=== PATIENT | male | born 1985 | race American Indian/Alaskan Native ===

== ENCOUNTER 2019-11-18 01:35 | Emergency (ER) | payer SELFPAY ==
[2019-11-18] MEDS ORDERED: SODIUM CHLORIDE 0.9% 1000 ML 1,000 ML IV ONE (02:08)
--- NOTE | 2019-11-18 02:08 | Emergency Department Report ---
ED Altered Mental Status HPI - General Chief Complaint: Altered Mental Status Stated Complaint: ETOH Time Seen by Provider: 11/18/19 01:57 Source: EMS Mode of arrival: Stretcher Limitations: Altered Mental Status - History of Present Illness Initial Comments: Unknown age male, appears to be in his 20s or 30s, brought into the ED by EMS for altered mental status. EMS reports possible ETOH. Pt was at a green party and reportedly had 1 beer. Accu-Chek 104. Patient arouses to painful stimuli, but remains nonverbal. MD Complaint: altered mental status -: This morning Severity: moderate Context: alcohol abuse - Related Data Allergies Allergy/AdvReac Type Severity Reaction Status Date / Time Unable to Assess Allergy Unverified 11/18/19 01:36 ED Review of Systems ROS: Stated complaint: ETOH Other details as noted in HPI Comment: Unobtainable due to pts medical conditions ED Past Medical Hx - Past Medical History Additional medical history: UTO - Social History Smoking Status: Unknown if ever smoked ED Physical Exam - General Limitations: Altered Mental Status General appearance: obtunded - Head Head exam: Present: atraumatic, normocephalic - Eye Eye exam: Present: normal appearance, PERRL, EOMI - ENT ENT exam: Present: mucous membranes moist - Neck Neck exam: Present: normal inspection - Respiratory Respiratory exam: Present: normal lung sounds bilaterally. Absent: respiratory distress - Cardiovascular Cardiovascular Exam: Present: regular rate, normal rhythm - GI/Abdominal GI/Abdominal exam: Present: soft. Absent: distended, tenderness - Extremities Exam Extremities exam: Present: normal inspection - Neurological Exam Neurological exam: Present: other (Appears intoxicated, responds to painful stimuli, moves all extremities) - Skin Skin exam: Present: warm, dry, intact, normal color ED Course Vital Signs 11/18/19 11/18/19 11/18/19 01:22 01:30 01:37 Temperature 97.8 F Pulse Rate 77 76 Respiratory 10 L 13 Rate Blood Pressure 108/60 108/60 Blood Pressure [Left] O2 Sat by Pulse 94 96 96 Oximetry 11/18/19 11/18/19 11/18/19 01:46 02:00 02:16 Temperature Pulse Rate 78 76 76 Respiratory Rate Blood Pressure 105/60 105/60 100/58 Blood Pressure [Left] O2 Sat by Pulse 95 90 96 Oximetry 11/18/19 11/18/19 11/18/19 02:30 02:46 03:00 Temperature Pulse Rate 72 71 71 Respiratory 12 10 L Rate Blood Pressure 100/58 97/56 97/56 Blood Pressure 97/56 [Left] O2 Sat by Pulse 95 97 95 Oximetry 11/18/19 11/18/19 11/18/19 03:16 03:30 03:46 Temperature Pulse Rate 72 69 71 Respiratory 10 L 10 L Rate Blood Pressure 94/49 94/49 100/49 Blood Pressure [Left] O2 Sat by Pulse 96 96 98 Oximetry 11/18/19 11/18/19 11/18/19 04:00 04:16 04:20 Temperature Pulse Rate 77 73 71 Respiratory 13 10 L 12 Rate Blood Pressure 100/49 106/53 Blood Pressure 106/53 [Left] O2 Sat by Pulse 100 100 Oximetry 11/18/19 11/18/19 11/18/19 04:30 04:46 05:00 Temperature Pulse Rate 73 64 75 Respiratory 13 11 L Rate Blood Pressure 106/53 107/47 100/73 Blood Pressure [Left] O2 Sat by Pulse 98 100 Oximetry 11/18/19 11/18/19 11/18/19 05:16 05:30 05:46 Temperature Pulse Rate 64 71 70 Respiratory Rate Blood Pressure 107/47 97/65 97/65 Blood Pressure [Left] O2 Sat by Pulse 98 96 97 Oximetry - Reevaluation(s) Reevaluation #1: 11/18/19 05:33 Pt currently arousable. Pt A&O x 3. Will d/c home at this time. - Lab Data Result diagrams: 11/18/19 02:35 11/18/19 02:35 Lab Results 11/18/19 11/18/19 11/18/19 Range/Units 02:35 02:35 02:35 WBC 7.0 (4.5-11.0) K/mm3 RBC 4.79 (3.65-5.03) M/mm3 Hgb 14.5 (11.8-15.2) gm/dl Hct 42.9 (35.5-45.6) % MCV 90 (84-94) fl MCH 30 (28-32) pg MCHC 34 (32-34) % RDW 13.9 (13.2-15.2) % Plt Count 287 (140-440) K/mm3 Lymph % (Auto) 36.3 H (13.4-35.0) % Terry % (Auto) 5.6 (0.0-7.3) % Eos % (Auto) 2.4 (0.0-4.3) % Baso % (Auto) 0.5 (0.0-1.8) % Lymph # 2.5 (1.2-5.4) K/mm3 Terry # 0.4 (0.0-0.8) K/mm3 Eos # 0.2 (0.0-0.4) K/mm3 Baso # 0.0 (0.0-0.1) K/mm3 Seg Neutrophils % 55.2 (40.0-70.0) % Seg Neutrophils # 3.9 (1.8-7.7) K/mm3 Sodium 138 (137-145) mmol/L Potassium 4.0 (3.6-5.0) mmol/L Chloride 101.0 (98-107) mmol/L Carbon Dioxide 23 (22-30) mmol/L Anion Gap 18 mmol/L BUN 13 (9-20) mg/dL Creatinine 1.3 (0.8-1.5) mg/dL Estimated GFR > 60 ml/min BUN/Creatinine Ratio 10 % Glucose 97 (75-100) mg/dL Calcium 8.8 (8.4-10.2) mg/dL Urine Opiates Screen Urine Methadone Screen Ur Barbiturates Screen Ur Phencyclidine Scrn Ur Amphetamines Screen U Benzodiazepines Scrn Urine Cocaine Screen U Marijuana (THC) Screen Drugs of Abuse Note Plasma/Serum Alcohol 0.18 H (0-0.07) % 11/18/19 Range/Units 02:53 WBC (4.5-11.0) K/mm3 RBC (3.65-5.03) M/mm3 Hgb (11.8-15.2) gm/dl Hct (35.5-45.6) % MCV (84-94) fl MCH (28-32) pg MCHC (32-34) % RDW (13.2-15.2) % Plt Count (140-440) K/mm3 Lymph % (Auto) (13.4-35.0) % Terry % (Auto) (0.0-7.3) % Eos % (Auto) (0.0-4.3) % Baso % (Auto) (0.0-1.8) % Lymph # (1.2-5.4) K/mm3 Terry # (0.0-0.8) K/mm3 Eos # (0.0-0.4) K/mm3 Baso # (0.0-0.1) K/mm3 Seg Neutrophils % (40.0-70.0) % Seg Neutrophils # (1.8-7.7) K/mm3 Sodium (137-145) mmol/L Potassium (3.6-5.0) mmol/L Chloride (98-107) mmol/L Carbon Dioxide (22-30) mmol/L Anion Gap mmol/L BUN (9-20) mg/dL Creatinine (0.8-1.5) mg/dL Estimated GFR ml/min BUN/Creatinine Ratio % Glucose (75-100) mg/dL Calcium (8.4-10.2) mg/dL Urine Opiates Screen Presumptive negative Urine Methadone Screen Presumptive negative Ur Barbiturates Screen Presumptive negative Ur Phencyclidine Scrn Presumptive negative Ur Amphetamines Screen Presumptive negative U Benzodiazepines Scrn Presumptive negative Urine Cocaine Screen Presumptive positive U Marijuana (THC) Screen Presumptive positive Drugs of Abuse Note Disclamer Plasma/Serum Alcohol (0-0.07) % - Radiology Data Radiology results: report reviewed, image reviewed - Medical Decision Making ETOH intoxication w/ cocaine and marijuana use. CT Head negative. Pt currently A&O x 3. No neuro deficits. No complaints. Will d/c home. - Differential Diagnosis ETOH, drug use, head injury Critical care attestation.: If time is entered above; I have spent that time in minutes in the direct care o f this critically ill patient, excluding procedure time. ED Disposition Clinical Impression: Alcohol intoxication, Cocaine use, Marijuana use, Altered mental status Disposition: DC-01 TO HOME OR SELFCARE Is pt being admited?: No Condition: Stable Instructions: Cocaine Abuse (ED), Alcohol Intoxication (ED) Referrals: [facility] [Provider Group] - 3-5 Days Time of Disposition: 05:34
--- NOTE | 2019-11-18 02:44 | Cat Scan Report ---
CT head/brain wo con INDICATION: ams. TECHNIQUE: All CT scans at this location are performed using the following dose modulation technique: Automated exposure control. CONTRAST: None. COMPARISON: None available. FINDINGS: The ventricular system is appropriate in size and configuration without midline shift. Nega tive for mass, stroke or hemorrhage. Imaged portions the paranasal sinuses are clear. IMPRESSION: Negative CT brain without contrast. Signer Name: Reynold Rick MD Signed: 11/18/2019 2:40 AM Workstation Name: [id number]
[2019-11-18 03:10] LABS: Amphetamine Screen,Urine PRESUMPTIVE NEGATIVE; Benzodiazepines Screen,Urine PRESUMPTIVE NEGATIVE; Methadone Screen,Urine PRESUMPTIVE NEGATIVE; Opiate Screen,Urine PRESUMPTIVE NEGATIVE
[2019-11-18 03:11] LABS: Basophils % (Auto) 0.5 % (0.0-1.8); Eosinophils # (Auto) 0.2 K/mm3 (0.0-0.4); Eosinophils % (Auto) 2.4 % (0.0-4.3); Hematocrit 42.9 % (35.5-45.6); Hemoglobin 14.5 gm/dl (11.8-15.2); Lymphocytes # (Auto) 2.5 K/mm3 (1.2-5.4); Lymphocytes % (Auto) 36.3 % (13.4-35.0); Mean Corpuscular HGB Conc 34 % (32-34); Mean Corpuscular Volume 90 fl (84-94); Monocytes # (Auto) 0.4 K/mm3 (0.0-0.8); Monocytes % (Auto) 5.6 % (0.0-7.3); Platelet Count 287 K/mm3 (140-440); Red Blood Count 4.79 M/mm3 (3.65-5.03); Red Cell Distribution Width 13.9 % (13.2-15.2)
[2019-11-18 03:23] LABS: Cannabinoid Screen,Urine PRESUMPTIVE POSITIVE; Cocaine Screen,Urine PRESUMPTIVE POSITIVE
[2019-11-18 03:32] LABS: BUN/Creatinine Ratio 10; Blood Urea Nitrogen 13 mg/dL (9-20); Calcium 8.8 mg/dL (8.4-10.2); Hemolysis Index 12
[2019-11-18 06:03] VITALS: BP 97/65
== END 2019-11-18 06:03 | disposition home or self-care (01) ==
LOC: ED 01:35
DX: F10.129 Alcohol abuse with intoxication, unspecified (principal); R41.82 Altered mental status, unspecified; F14.10 Cocaine abuse, uncomplicated; F12.10 Cannabis abuse, uncomplicated
CPT/HCPCS: 36415; 70450; 80048; 80307; 85025; 96360; 99284; J7030; 80320; G0480